=== PATIENT | male | born 1975 | race Caucasian/White ===

== ENCOUNTER 2016-11-13 04:33 | Emergency (ER) | payer BC ==
[~2016-11-13] VITALS: Ht 182.9 cm; Wt 111.1 kg
[~2016-11-13 04:33] MED LIST: NOVOLOG FLEX100 U/ML SC
[2016-11-13] MEDS ORDERED: AVPAK AZITHROM250 MG PO (04:48)
[2016-11-13] MEDS ORDERED: METFORMIN500 MG PO (04:49)
--- OUTSIDE RECORDS SUMMARY | 2016-11-13 04:52 | External Medical Summary Rpt ---
Author Author , Organization [employer] Address Unknown Phone Unavailable Care Team Providers Care Cash Applications Clerk Name Role Phone LOUANN JACQUES, LOUANN JACQUES Unavailable Unavailable [facility], Unavailable Unavailable [facility] Purpose Continuity of Care Document - 12-26-2015 through 2016 Problems Code Diagnosis DOS Provider Status [id number] PHOTOKERATI 12-26-2015 [facility] BILATERAL H5713 OCULAR PAIN 12-26-2015 [facility] Z880 ALLERGY 12-26-2015 [facility] STATUS TO HOSPITAL PENICILLIN Encounters Encounter Start End Date Code [facility] [address] [facility]PATIEN T EMERGENCY [address] [facility] LOUANN JACQUES [address] [place] [address] EMERGENCY T VISIT PHYS MODERATE SEVERITY
--- OUTSIDE RECORDS SUMMARY | 2016-11-13 04:52 | External Medical Summary Rpt ---
Demographics Preferred Language Yakut Marital Status Unknown Hinduism Affiliation Unknown Race Unknown Ethnic Group Unknown Author Author , Organization [employer] Address Unknown Phone Unavailable Purpose Continuity of Care Document - through 2016 Immunization No patient found.
--- OUTSIDE RECORDS SUMMARY | 2016-11-13 04:52 | External Medical Summary Rpt ---
Author Author CRISTA Barrios, C[employer]STA [employer] Organization [employer] Address Unknown Phone Unavailable
--- OUTSIDE RECORDS SUMMARY | 2016-11-13 04:52 | External Medical Summary Rpt ---
Demographics Preferred Language Greenlandic Marital Status Unknown Spiritism Affiliation Unknown Race Unknown Ethnic Group Unknown Author Author , Organization [employer] Address Unknown Phone Unavailable Purpose Continuity of Care Document - through 2016 Immunization No patient found.
--- OUTSIDE RECORDS SUMMARY | 2016-11-13 04:52 | External Medical Summary Rpt ---
Author Author , Organization [employer] Address Unknown Phone Unavailable Care Team Providers Care Netsuite Consultant Name Role Phone [facility], Unavailable Unavailable [facility] Purpose Continuity of Care Document - 12-26-2015 through 2016 Problems Code Diagnosis DOS Provider Status [id number] PHOTOKERATI 12-26-2015 [facility] BILATERAL H5713 OCULAR PAIN 12-26-2015 [facility] N [facility]YS Z880 ALLERGY 12-26-2015 [facility] STATUS TO HOSPITAL PENICILLIN Encounters Encounter Start End Date Code Location Performer Type Date EMERGENCY [address] DEPARTMEN T VISIT [facility] SEVERITY [facility] [address] OUTPATIEN T
--- OUTSIDE RECORDS SUMMARY | 2016-11-13 04:52 | External Medical Summary Rpt ---
Author Author , Organization [employer] Address Unknown Phone Unavailable Care Team Providers Care Instructor Of Sociology Name Role Phone LOUANN JACQUES, LOUANN JACQUES Unavailable Unavailable [facility], Unavailable Unavailable [facility] Purpose Continuity of Care Document - 12-26-2015 through 2016 Problems Code Diagnosis DOS Provider Status [id number] PHOTOKERATI 12-26-2015 [facility] BILATERAL H5713 OCULAR PAIN 12-26-2015 [facility] Z880 ALLERGY 12-26-2015 [facility] STATUS TO HOSPITAL PENICILLIN Encounters Encounter Start End Date Code Location Performer Type Date [facility] [address] OUTPATIEN T EMERGENCY [address] [facility] LOUANN JACQUES [address] [place] [address] EMERGENCY T VISIT PHYS MODERATE SEVERITY
--- OUTSIDE RECORDS SUMMARY | 2016-11-13 04:52 | External Medical Summary Rpt ---
Author Author , Organization [employer] Address Unknown Phone Unavailable Care Team Providers Care Sql Analyst Name Role Phone [facility], Unavailable Unavailable [facility] Purpose Continuity of Care Document - 12-26-2015 through 2016 Problems Code Diagnosis DOS Provider Status [id number] PHOTOKERATI 12-26-2015 [facility] BILATERAL H5713 OCULAR PAIN 12-26-2015 [facility] N [facility]Y PHYS Z880 ALLERGY 12-26-2015 [facility] STATUS TO HOSPITAL PENICILLIN Encounters Encounter Start End Date Code Location Performer Type Date EMERGENCY [address] DEPARTMEN T VISIT MODERATE SEVERITY HOSPITAL [address] OUTPATIEN T
--- NOTE | 2016-11-13 04:56 | Emergency Room Report ---
History of Present Illness Time Seen by [id number] Presenting Problem in Triage Pt arrived:Walked Presenting Problem:c/o hives and itching along with head, face and neck pain.Was seen in [facility] on 11/11/16 and Dx: with right otitis and blocked parotid gland. Taking zithromax. Head, face and neck pain started 4-5 days ago Onset of symptoms date/time:/ or onset unknown for:MEDICAL HX UNKNOWN Treatment Prior to Arrival: seen in [facility] and prescribed zithromax and received steroid injection on 11/11/16 RESIDENTIAL SOLAR CONSULTANT Provided by:NURSE Sepsis Risk Assessment: Temp: 98.4 B/P: 116/91 MAP: 99 Pulse: 91 Resp: 189 Recent fever? N Clinical Suspician of Infection? Y Mental Status: 1 - Regular (Normal Baseline) Sepsis Risk:Severe Sepsis Risk Have you (or family members/close friends) recently traveled outside the [place]? N If Yes, where/when: Have you had exposure to infectious disease within the past month? N TB? Other? Specify: Source patient, RN notes reviewed, old records Exam Limitations no limitations Comment pt with hives with itching and has hx of being treated for ear infection over the last few days Cardiac Chest Pain Chest pain indicative of cardiac No Timing/Duration this evening Severity moderate ALLERGIES Coded Allergies: Penicillins (unknown 11/13/16) Home Medications Reported Medications Azithromycin (Avpak Azithromycin) 250 MG PO DAILY #6 Metformin HCL (Metformin) 500 MG PO BID History Medical History General CAD? No Angina: No AR: No Hypertension? No Hyperlipidemia? No CHF? No DVT? No PE? No COPD? No Asthma? No Anemia? No GERD? No Gastric ulcers? No GI Bleed? No Hernia? No Thyroid Problems? No Hypothyroidism? No CVA? No Seizures? No Diabetes? Yes Insulin Dependent: No Insulin Pump: No Home FSBS? Yes Renal Insuffiency? No End Stage Renal Disease? No UTI? No Stones? No BPH? No GB Disease: No Nephritic Syndrome? No Asplenia? No Hepatitis? No Sickle Cell Disease? No Arthritis? No Migraines? No Cataracts? No Glaucoma? No MRSA? No HIV? No TB? No Anxiety? No Depression? No Cancer? No More? Yes Additional hx: BELLS PALSY Immunization Hx DT/Tetanus 5-10 YRS Flu Refused Pneumonia Never Had Surgical Hx Previous Surgery?N Family History Family Hx Diabetes Yes CAD Yes Hypertension Yes Hyperlipidemia Yes Cancer Yes TB No Social History Smoking Hx Smoker: Current Every Day Smoker Tobacco: Yes Type Cigarettes Alcohol Alcohol: Yes Drugs none Review of Systems All Other Systems Reviewed and Negative Constitutional denies fever Eyes denies drainage ENT denies: ear pain, epistaxis, throat pain. Respiratory denies cough, denies shortness of breath, denies wheezing Cardiovascular denies chest pain Gastrointestinal denies abdominal pain, denies vomiting Genitourinary denies: dysuria, frequency, hesitancy, hematuria. Musculoskeletal denies back pain, denies joint pain, denies joint swelling, denies neck pain Skin see HPI, rash Psychiatric/Neurological denies headache, denies seizure Physical Exam Vital Signs Vital Signs Date Time Temp Pulse Resp B/P Pulse O2 O2 Flow FiO2 Ox Delivery Rate 11/13 0440 98.4 91 189 116/91 98 - WBC >12,000 or <4,000 or 10% bands? 2 or more SIRS Criteria Met? B/P:116/91 MAP:99 Creatinine >2.0? UA output<0.5ml/kg/hr for 2 hrs? Platelet count >100,000? Lactate >2.0mmol/1? INR >1.2 or PTT > than 60 sec? Evidence of Organ Dysfunction? Provider documented clinical suspician of infection? Y Sepsis Criteria Count: 2 Sepsis Risk: Severe Sepsis Risk General Appearance no apparent distress Eye Exam - bilateral eye PERRL, bilateral eye EOMI Ear, Nose, Throat rt ear clear with no swollen rt parotid gland and throat clear Neck supple Respiratory Status No: respiratory distress. Cardiovascular regular rate/rhythm Peripheral Pulses Pulses normal Yes Extremities normal inspection Strength 4 Upper Ext (L), 4 Upper Ext (R), 4 Lower Ext (L), 4 Lower Ext (R) Neurologic alert, business functional analyst II-XII nml as tested, no motor/sensory deficits Reflexes Reflexes normal No Mental status normal mood/affect Skin no rash cons.w/shingles Lymphatic no adenopathy Medical Decision Making LABS/Meds/Orders Pt receiving controlled substance in ED? No Departure Departure Time of Disposition 9172 Disposition DC Home or Self Care(routine) Clinical Impression Primary Impression: Urticaria Condition STABLE Patient Instructions DI for Hives Additional Instructions stop z janeth and use meds as directed and see pcp for follow up this week Discharge Counseling Counseled pt/family regarding diagnosis, test results, medications/RX, follow up needs Prescriptions Current Visit Scripts Prednisone (Prednisone 10MG) 10 MG PO BID #10 TAB CEPHALEXIN (Keflex 500MG Capsule) 500 MG PO Q8H #21 CAP ED Critical Care Critical Care No at 0502
--- NOTE | 2016-11-13 04:56 | Emergency Room Report ---
History of Present Illness Time Seen by [id number] Presenting Problem in Triage Pt arrived:Walked Presenting Problem:c/o hives and itching along with head, face and neck pain.Was seen in [facility] on 11/11/16 and Dx: with right otitis and blocked parotid gland. Taking zithromax. Head, face and neck pain started 4-5 days ago Onset of symptoms date/time:/ or onset unknown for:MEDICAL HX UNKNOWN Treatment Prior to Arrival: seen in 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 N Clinical Suspician of Infection? Y Mental Status: 1 - Regular (Normal Baseline) Sepsis Risk:Severe Sepsis Risk Have you (or family members/close friends) recently traveled outside the [place]? N If Yes, where/when: Have you had exposure to infectious disease within the past month? N TB? Other? Specify: Source patient, RN notes reviewed, old records Exam Limitations no limitations Comment pt with hives with itching and has hx of being treated for ear infection over the last few days Cardiac Chest Pain Chest pain indicative of cardiac No Timing/Duration this evening Severity moderate ALLERGIES Coded Allergies: Penicillins (unknown 11/13/16) Home Medications Reported Medications Azithromycin (Avpak Azithromycin) 250 MG PO DAILY #6 Metformin HCL (Metformin) 500 MG PO BID History Medical History General CAD? No Angina: No CA: No Hypertension? No Hyperlipidemia? No CHF? No DVT? No PE? No COPD? No Asthma? No Anemia? No GERD? No Gastric ulcers? No GI Bleed? No Hernia? No Thyroid Problems? No Hypothyroidism? No CVA? No Seizures? No Diabetes? Yes Insulin Dependent: No Insulin Pump: No Home FSBS? Yes Renal Insuffiency? No End Stage Renal Disease? No UTI? No Stones? No BPH? No GB Disease: No Nephritic Syndrome? No Asplenia? No Hepatitis? No Sickle Cell Disease? No Arthritis? No Migraines? No Cataracts? No Glaucoma? No MRSA? No HIV? No TB? No Anxiety? No Depression? No Cancer? No More? Yes Additional hx: BELLS PALSY Immunization Hx DT/Tetanus 5-10 YRS Flu Refused Pneumonia Never Had Surgical Hx Previous Surgery?N Family History Family Hx Diabetes Yes CAD Yes Hypertension Yes Hyperlipidemia Yes Cancer Yes TB No Social History Smoking Hx Smoker: Current Every Day Smoker Tobacco: Yes Type Cigarettes Alcohol Alcohol: Yes Drugs none Review of Systems All Other Systems Reviewed and Negative Constitutional denies fever Eyes denies drainage ENT denies: ear pain, epistaxis, throat pain. Respiratory denies cough, denies shortness of breath, denies wheezing Cardiovascular denies chest pain Gastrointestinal denies abdominal pain, denies vomiting Genitourinary denies: dysuria, frequency, hesitancy, hematuria. Musculoskeletal denies back pain, denies joint pain, denies joint swelling, denies neck pain Skin see HPI, rash Psychiatric/Neurological denies headache, denies seizure Physical Exam Vital Signs Vital Signs Date Time Temp Pulse Resp B/P Pulse O2 O2 Flow FiO2 Ox Delivery Rate 11/13 0440 98.4 91 189 116/91 98 - WBC >12,000 or <4,000 or 10% bands? 2 or more SIRS Criteria Met? B/P:116/91 MAP:99 Creatinine >2.0? UA output<0.5ml/kg/hr for 2 hrs? Platelet count >100,000? Lactate >2.0mmol/1? INR >1.2 or PTT > than 60 sec? Evidence of Organ Dysfunction? Provider documented clinical suspician of infection? Y Sepsis Criteria Count: 2 Sepsis Risk: Severe Sepsis Risk General Appearance no apparent distress Eye Exam - bilateral eye PERRL, bilateral eye EOMI Ear, Nose, Throat rt ear clear with no swollen rt parotid gland and throat clear Neck supple Respiratory Status No: respiratory distress. Cardiovascular regular rate/rhythm Peripheral Pulses Pulses normal Yes Extremities normal inspection Strength 4 Upper Ext (L), 4 Upper Ext (R), 4 Lower Ext (L), 4 Lower Ext (R) Neurologic alert, certified legal secretary specialist II-XII nml as tested, no motor/sensory deficits Reflexes Reflexes normal No Mental status normal mood/affect Skin no rash cons.w/shingles Lymphatic no adenopathy Medical Decision Making LABS/Meds/Orders Pt receiving controlled substance in ED? No Departure Departure Time of Disposition 2963 Disposition DC Home or Self Care(routine) Clinical Impression Primary Impression: Urticaria Condition STABLE Patient Instructions DI for Hives Additional Instructions stop z janeth and use meds as directed and see pcp for follow up this week Discharge Counseling Counseled pt/family regarding diagnosis, test results, medications/RX, follow up needs Prescriptions Current Visit Scripts Prednisone (Prednisone 10MG) 10 MG PO BID #10 TAB CEPHALEXIN (Keflex 500MG Capsule) 500 MG PO Q8H #21 CAP ED Critical Care Critical Care No at 0502
[2016-11-13] MEDS ORDERED: KEFLEX 500MG.500 MG PO (05:02)
[2016-11-13] MEDS ORDERED: PREDNISONE 10MG10 MG PO (05:02)
[2016-11-13 05:15] VITALS: BP 116/91
== END 2016-11-13 05:16 | disposition home or self-care (01) ==
LOC: ER 04:33
DX: L50.0 Allergic urticaria (principal); Z72.0 Tobacco use; E11.9 Type 2 diabetes mellitus without complications

== ENCOUNTER 2016-12-25 13:45 | Emergency (ER) | payer BC ==
[~2016-12-25] VITALS: Ht 182.9 cm; Wt 99.8 kg
[~2016-12-25 13:45] MED LIST changes: +AVPAK AZITHROM250 MG PO; +KEFLEX 500MG.500 MG PO; +METFORMIN500 MG PO; +PREDNISONE 10MG10 MG PO
--- OUTSIDE RECORDS SUMMARY | 2016-12-25 13:59 | External Medical Summary Rpt ---
Demographics Preferred Language Occitan Marital Status Unknown Christian Affiliation Unknown Race Unknown Ethnic Group Unknown Author Author SELENE Address Unknown Phone Immunization No patient found.
--- OUTSIDE RECORDS SUMMARY | 2016-12-25 13:59 | External Medical Summary Rpt ---
Author Author , CRISTA TOBIN Address Unknown Phone [email or web address] Care Team Providers Care Sql Tech Name Role Phone LOUANN JACQUES, LOUANN JACQUES Unavailable Unavailable ARIN HINKLE Unavailable Unavailable [facility] Unavailable Unavailable [facility] Unavailable Un[facility], [facility], Unavailable Unavailable [facility], Unavailable Unavailable [facility], [facility], [facility] Unavailable Unavailable [facility], Unavailable Unavailable [facility] Purpose Continuity of Care Document - 12-26-2015 through 2016 Problems Code Diagnosis DOS Provider Status E119 TYPE 2 11-13-2016 [place] [facility] MELLITUS INC WITHOUT COMPLICATIO NS L500 ALLERGIC 11-13-2016 [facility] L509 URTICARIA 11-13-2016 [facility]PECIF[facility], [facility] Z720 TOBACCO USE 11-13-2016 [facility] H6690 OTITIS 11-11-2016 [facility] PHYSICIAN UNSPECIFIED GROUP UNSPECIFIED EAR [id number] PHOTOKERATI 12-26-2015 [facility] BILATERAL H5713 OCULAR PAIN 12-26-2015 [facility] N EMERG[facility]Y PHYS Z880 ALLERGY 12-26-2015 [facility] STATUS TO HOSPITAL PENICILLIN Medications Na ND Rx Da Fi Fi Am Da Di Ph RX Ph St me C No te ll ll ou ys ag ar # ys at rm s nt no ma ic us Or Da si cy ia de te s n re d CE 68 07 08 21 7 00 ME Ac PH 18 -0 -0 .0 00 L- ti AL 00 4- 4- 00 07 MA ve EX 12 20 20 49 RT IN 20 17 17 70 2 12 PH 50 AR 0 MA MG CY CA #5 PS 91 UL E DC 59 07 08 10 5 00 ME Ac ED 74 -0 -0 .0 00 L- ti NI 60 4- 4- 00 07 MA ve SO 17 20 20 49 RT NE 30 17 17 70 6 13 PH 10 AR MA MG CY TA #5 BL 91 ET AZ 59 07 07 6. 5 00 ME Ac IT 76 -0 -2 00 00 L- ti HR 23 2- 8- 0 07 MA ve OM 06 20 20 49 RT YC 00 17 17 67 IN 1 45 PH AR 25 MA 0 CY MG #5 TA 91 BL ET Procedures Procedure DOS Code Location Performer Comment THERAPEUT 57846 [facility] ARIN IC 7 PHYSICIAN PROPHYLAC GROUP TIC/DX INJECTION SUBQ/IM INJECTION J1100 [facility] ARIN 7 PHYSICIAN DEXAMETHO GROUP SONE SODIUM PHOSPHATE 1 MG Encounters Encounter Start End Date Code Location Performer Type Date EMERGENCY [address]126 [facility] 7 7 [facility] T VISIT LOW/MODER SEVERITY HOSPITAL [facility] Parnell 7 7 [facility] OUTPATIEN [facility] T EMERGENCY 84027 [facility] 7 7 [facility]PART[facility] T VISIT MODERATE SEVERITY OFFICE 93548 [facility] T [facility]ISIT GROUP 10 [facility]UTES [facility] [place] [address] 6 [facility] OUTPATIEN T EMERGENCY [address] [facility] 6 6 [facility] EMERGENCY T VISIT PHYS MODERATE SEVERITY
--- OUTSIDE RECORDS SUMMARY | 2016-12-25 13:59 | External Medical Summary Rpt ---
Author Author , CRISTA TOBIN Address Unknown Phone [email or web address] Care Team Providers Care Hazardous Materials Tanker Driver Name Role Phone ARIN KEVINSHAYY Unavailable Unavailable [facility] Unavailable Unavailable [facility] Unavailable Unavailable INC, [facility], Unavailable Unavailable [facility], Unavailable Unavailable [facility], [facility], [facility] Unavailable Unavailable EMERGENCY PHYS, [facility] EMERGENCY PHYS [facility], Unavailable Unavailable [facility] Purpose Continuity of Care Document - 12-26-2015 through 2016 Problems Code Diagnosis DOS Provider Status E119 TYPE 2 11-13-2016 [facility] ME[facility] WITHOUT COMPLICATIO NS L500 ALLERGIC 11-13-2016 [facility] L509 URTICARIA 11-13-2016 [facility]NSPECIFIED PH[facility]ICIANS, [facility] Z720 TOBACCO USE 11-13-2016 [facility] H6690 OTITIS 11-11-2016 [facility] MEDIA PHYSICIAN UNSPECIFIED GROUP UNSPECIFIED EAR [id number] PHOTOKERATI 12-26-2015 [facility] BILATERAL H5713 OCULAR PAIN 12-26-2015 [facility] B[facility]AL N EMERGENCY PHYS Z880 ALLERGY 12-26-2015 [facility] STATUS TO HOSPITAL PENICILLIN K42.9 UMBILICAL HERNIA WITHOUT OBSTRUCTION OR GANGRENE L50.9 URTICARIA, UNSPECIFIED Allergies, Adverse Reactions, Alerts Clinical Alert Notifications Alert Diabetes: no A1C in the last 6 months Diabetes: no eye exam in the last 365 days Diabetes: no influenza vaccine in the last 365 days Diabetes: no lipid panel in the last 365 days Diabetes: no urine protein screening in the last 365 days Medications Na ND Rx Da Fi Fi Am Da Di Ph RX Ph St me C No te ll ll ou ys ag ar # ys at rm s nt no ma ic us Or Da si cy ia de te s n re d CE 68 07 08 21 7 00 WA Ac PH 18 -0 -0 .0 00 L- ti AL 00 4- 4- 00 07 MA ve EX 12 20 20 49 RT IN 20 17 17 70 2 12 PH 50 AR 0 MA MG CY CA #5 PS 91 UL E FL 59 07 08 10 5 00 WA Ac ED 74 -0 -0 .0 00 L- ti NI 60 4- 4- 00 07 MA ve SO 17 20 20 49 RT NE 30 17 17 70 6 13 PH 10 AR MA MG CY TA #5 BL 91 ET AZ 59 07 07 6. 5 00 WA Ac IT 76 -0 -2 00 00 L- ti HR 23 2- 8- 0 07 MA ve OM 06 20 20 49 RT YC 00 17 17 67 IN 1 45 PH AR 25 MA 0 CY MG #5 TA 91 BL ET Procedures Procedure DOS Code Location Performer Comment THERAPEUT 77810 [facility] ARIN IC 7 PHYSICIAN PROPHYLAC GROUP TIC/DX INJECTION SUBQ/IM INJECTION J1100 [facility] YMSHAYY 7 PHYSICIAN DEXAMETHO GROUP SONE SODIUM PHOSPHATE 1 MG Encounters Encounter Start End Date Code Location Performer Type Date EMERGENCY 20814 [facility] 7 7 [facility] T VISIT MODERATE SEVERITY EMERGENCY 34485 [facility] 7 7 [facility] T VISIT LOW/MODER SEVERITY HOSPITAL [facility] - 7 7 [facility] OUTPATIEN INC T OFFICE 67498 [facility] ARIN OUTPATIEN 7 7 PHYSICIAN T VISIT GROUP 10 [address] [address] [facility] [address] DEPARTMEN T VISIT MODERATE SEVERITY
--- OUTSIDE RECORDS SUMMARY | 2016-12-25 13:59 | External Medical Summary Rpt ---
Demographics Preferred Language Sami Marital Status Unknown Church Affiliation Unknown Race Unknown Ethnic Group Unknown Author Author SELENE Address Unknown Phone Immunization No patient found.
--- OUTSIDE RECORDS SUMMARY | 2016-12-25 13:59 | External Medical Summary Rpt ---
Author Author , CRISTA TOBIN Address Unknown Phone Care Team Providers Care Cumulative Effects Analyst Name Role Phone LOUANN JACQUES, LOUANN JACQUES Unavailable Unavailable ARIN HINKLE Unavailable Unavailable [facility] Unavailable Unavailable [facility] Unavailable Unavailable INC, [facility], Unavailable Unavailable [facility], Unavailable Unavailable [facility], [facility], [facility] Unavailable Unavailable EMERGENCY PHYS, [facility], Unavailable Unavailable [facility] Purpose Continuity of Care Document - 12-26-2015 through 2016 Problems Code Diagnosis DOS Provider Status E119 TYPE 2 11-13-[address] [place] [address] [facility] WITHOUT COMPLICATIO NS L500 ALLERGIC 11-13-2016 [facility] L509 URTICARIA 11-13-2016 [facility], [facility] Z720 TOBACCO USE 11-13-2016 [facility] H6690 OTITIS 11-11-2016 [facility] UNSPECIFIED GROUP UNSPECIFIED EAR [id number] PHOTOKERATI 12-26-2015 [facility] BILATERAL H5713 OCULAR PAIN 12-26-2015 [facility] Z880 ALLERGY 12-26-2015 [facility] STATUS TO HOSPITAL PENICILLIN Medications Na ND Rx Da Fi Fi Am Da Di Ph RX Ph St me C No te ll ll ou ys ag ar # ys at rm s nt no ma ic us Or Da si cy ia de te s n re d CE 68 07 08 21 7 00 DE Ac PH 18 -0 -0 .0 00 L- ti AL 00 4- 4- 00 07 MA ve EX 12 20 20 49 RT IN 20 17 17 70 2 12 PH 50 AR 0 MA MG CY CA #5 PS 91 UL E TX 59 07 08 10 5 00 DE Ac ED 74 -0 -0 .0 00 L- ti NI 60 4- 4- 00 07 MA ve SO 17 20 20 49 RT NE 30 17 17 70 6 13 PH 10 AR MA MG CY TA #5 BL 91 ET AZ 59 07 07 6. 5 00 DE Ac IT 76 -0 -2 00 00 L- ti HR 23 2- 8- 0 07 MA ve OM 06 20 20 49 RT YC 00 17 17 67 IN 1 45 PH AR 25 MA 0 CY MG #5 TA 91 BL ET Procedures Procedure DOS Code Location Performer Comment THERAPEUT [address] [facility] IC 7 PHYSICIAN PROPHYLAC GROUP TIC/DX INJECTION SUBQ/IM INJECTION J1100 [facility] 7 PHYSICIAN DEXAMETHO GROUP SONE SODIUM PHOSPHATE 1 MG Encounters Encounter Start End Date Code Location Performer Type Date EMERGENCY [address] [facility] [address] [facility] T VISIT LOW/MODER SEVERITY HOSPITAL [facility] [address] [facility] OUTPATIEN [facility] T EMERGENCY [address] [facility] 7 7 [facility] T VISIT MODERATE SEVERITY OFFICE [address] [facility] T VISIT GROUP 10 MINUTES HOSPITAL [place] [address] 6 [facility] OUTPATIEN T EMERGENCY [address] [facility] 6 6 [facility] EMERGENCY T VISIT PHYS MODERATE SEVERITY
--- OUTSIDE RECORDS SUMMARY | 2016-12-25 13:59 | External Medical Summary Rpt ---
Author Author , CRISTA TOBIN Address Unknown Phone [email or web address] Care Team Providers Care Strap Machine Operator Automatic Name Role Phone ARIN KEVINSHAYY Unavailable Unavailable [facility] Unavailable Unavailable [facility] Unavailable Unavailable INC, [facility], Unavailable Unavailable [facility], Unavailable Unavailable [facility], [facility], [facility] Unavailable Unavailable EMERGENCY PHYS, [facility] EMERGENCY PHYS [facility], Unavailable Unavailable [facility] Purpose Continuity of Care Document - 12-26-2015 through 2016 Problems Code Diagnosis DOS Provider Status E119 TYPE 2 11-13-2016 [facility] WITHOUT COMPLICATIO NS L500 ALLERGIC 11-13-2016 [facility] L509 URTICARIA 11-13-2016 [facility], [facility] Z720 TOBACCO USE 11-13-2016 [facility] H6690 OTITIS 11-11-2016 [facility] UNSPECIFIED GROUP UNSPECIFIED EAR [id number] PHOTOKERATI 12-26-2015 [facility] BILATERAL H5713 OCULAR PAIN 12-26-2015 [facility] Z880 ALLERGY 12-26-2015 [facility] STATUS TO HOSPITAL PENICILLIN K42.9 UMBILICAL [...] CY CA #5 PS 91 UL E AL 59 07 08 10 5 00 WA [...] Procedure DOS Code Location Performer Comment THERAPEUT [address]10 [facility] IC 7 PHYSICIAN PROPHYLAC GROUP TIC/DX INJECTION SUBQ/IM INJECTION J1100 [facility] YMSHAYY 7 PHYSICIAN DEXAMETHO GROUP SONE SODIUM PHOSPHATE 1 MG Encounters Encounter Start End Date Code Location Performer Type Date EMERGENCY 37673 [facility] 7 7 [facility] T VISIT MODERATE SEVERITY EMERGENCY 72518 [facility] 7 7 [facility] T VISIT LOW/MODER SEVERITY HOSPITAL [facility] - [address] [facility] OUTPATIEN INC T OFFICE [address] [facility] ARIN OUTPATIEN 7 7 PHYSICIAN T VISIT GROUP 10 [address] [facility] [address] DEPARTMEN T VISIT MODERATE SEVERITY
--- NOTE | 2016-12-25 14:01 | Urgent Treatment Center Report ---
History of Present Issue Date/Time Seen by Provider 12/25/16 1401 Visit Reason Pt arrived:Walked Presenting Problem:PT ADVISES HIS SUGAR HAS BEEN HIGH AND THAT HE IS OUT OF HIS METFORMIN HE IS SCHEDULED TO SEE ON SATURDAY A NEW PATEINT. PT HERE FOR MED REFILL Location if Accident: Onset of symptoms date/time:/ or onset unknown for:MEDICAL HX UNKNOWN Have you (or family members/close friends) recently traveled outside the [place]? If Yes, where/when: Have you had exposure to infectious disease within the past month? TB? Other? Specify: Patient states that he has been out of his medication for several days States that he knew his "sugar" was getting elevated when he began to feel bad which he usually does when he is out of his medication State that he took a couple of his sisters metformin but she is out now also States that he came in today to get his medication refilled before his blood sugar gets out of control ALLERGIES Coded Allergies: Penicillins (unknown 11/13/16) Home Medications Reported Medications Metformin HCL (Metformin) 500 MG PO BID History Medical History General CAD? No Angina: No [place]: No Hypertension? No Hyperlipidemia? No CHF? No DVT? No PE? No COPD? No Asthma? No Anemia? No GERD? No Gastric ulcers? No GI Bleed? No Hernia? No Thyroid Problems? No Hypothyroidism? No CVA? No Seizures? No Diabetes? Yes Insulin Dependent: No Insulin Pump: No Home FSBS? Yes Renal Insuffiency? No UTI? No Stones? No BPH? No GB Disease: No Nephritic Syndrome? No Asplenia? No Hepatitis? No Sickle Cell Disease? No Arthritis? No Migraines? No Cataracts? No Glaucoma? No MRSA? No HIV? No TB? No Anxiety? No Depression? No Cancer? No More? Yes Additional hx: BELLS PALSY Immunization HX DT/Tetanus 5-10 YRS Flu Refused Pneumonia Never Had Surgical Hx Previous Surgery?Y HERNIA REPAIR Family History Family HX Diabetes Yes CAD Yes Hypertension Yes Hyperlipidemia Yes Cancer Yes TB No Social History Smoking Hx Packs/day < 1 Pack Alcohol Alcohol: Yes Review of Systems All Other Systems Reviewed and Negative Comment Patient wants to get Metformin refilled states that he knew his blood sugar was going to get to high because he had been out of his medication for several days Physical Exam Vital Signs Vital Signs Date Time Temp Pulse Resp B/P Pulse O2 O2 Flow FiO2 Ox Delivery Rate 12/25 1401 98.2 84 16 154/94 98 12/25 1347 98.2 84 16 154/94 98 General Appearance normal appearance, WD/WN, no apparent distress Respiratory Status Yes: trachea midline, chest symmetrical, non tender chest. No: respiratory distress. 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 Patient been out of his Metformin for several days states that he has appointment on with Dr Dee but couldn't wait that long without his medication Medical Decision Making LABS/Meds/Orders Pt receiving controlled substance in ED? No Results/Orders Laboratory Tests 12/25/16 1458: POC Glucose 387 *H 12/25/16 1351: POC Glucose 445 *H Current Medication Orders Sig/Armaan Start time Last Medication Dose Route Stop Time Status Admin Metformin HCl 500 MG ONCE ONE 12/25 1515 DC 12/25 PO 12/25 1516 1513 Insulin Human Regular 10 UNITS ONCE ONE 12/25 1415 DC 12/25 SC 12/25 1416 1415 Insulin Human Regular 0 .STK-MED ONE 12/25 1411 DC .ROUTE Orders Procedure Date/time Status FINGERSTICK BLOOD SUGAR 12/25 1458 Complete FINGERSTICK BLOOD SUGAR 12/25 1351 Complete Progress [facility] Progress Notes 1 Date 12/25/16 Time 1425 Comment Spoke with ER physician Dr Regan informed him of blood sugar reading of 445. Patient informed that he may need to be moved to the ER for further evaluation and treatment and paitent refused State that he wants to stay in [facility]. Dr Regan agreed with treatment of Regular insulin 10 units SQ then repeat fingerstick in 300 minutes [facility] Progress Notes 2 Date 12/25/16 Time 1507 Comment Patient state that he feels better 2nd finger stick blood sugar 387 dicussed patient with ER physician Dr Regan and agreed on treatment plan to start patient on previously prescribed metformin 500mg before leaving [facility] and advise patient to follow up with Dr Dee as previously planned and have patient recheck his FSBS in an hour to make sure that it is still continuing to lower Departure Departure Time of Disposition 1513 Disposition DC Home or Self Care(routine) Clinical Impression Primary Impression: Medication refill Secondary Impressions: Elevated blood sugar Condition STABLE Referrals Kailash Dee MD (Family): 2 Days-Call Office Patient Instructions Blood Glucose, DI for Hyperglycemia -- Adult, Glyburide and Metformin, Metformin Additional Instructions Take medication as prescribed Watch your diet and avoid sugary foods to help keep your blood sugar from being elevated Follow up with Dr Dee on for further evaluation or testing Watch blood sugar and if it gets too high or too low go straight to the emergency room Return if need Discharge Counseling Counseled pt/family regarding diagnosis, test results, medications/RX, home care, follow up needs Prescriptions Current Visit Scripts METFORMIN HCL (Metformin 500MG) 500 MG PO BID #60 TAB at 0009
--- NOTE | 2016-12-25 14:01 | Urgent Treatment Center Report ---
History of Present Issue Date/Time Seen by Provider 12/25/16 1401 Visit Reason Pt arrived:Walked Presenting Problem:PT ADVISES HIS SUGAR HAS BEEN HIGH AND THAT HE IS OUT OF HIS METFORMIN HE IS SCHEDULED TO SEE ON SATURDAY A NEW PATEINT. PT HERE FOR MED REFILL Location if Accident: Onset of symptoms date/time:/ or onset unknown for:MEDICAL HX UNKNOWN Have you (or family members/close friends) recently traveled outside the [place]? If Yes, where/when: Have you had exposure to infectious disease within the past month? TB? Other? Specify: Patient states that he has been out of his medication for several days States that he knew his "sugar" was getting elevated when he began to feel bad which he usually does when he is out of his medication State that he took a couple of his sisters metformin but she is out now also States that he came in today to get his medication refilled before his blood sugar gets out of control ALLERGIES Coded Allergies: Penicillins (unknown 11/13/16) Home Medications Reported Medications Metformin HCL (Metformin) 500 MG PO BID History Medical History General CAD? No Angina: No [place]: No Hypertension? No Hyperlipidemia? No CHF? No DVT? No PE? No COPD? No Asthma? No Anemia? No GERD? No Gastric ulcers? No GI Bleed? No Hernia? No Thyroid Problems? No Hypothyroidism? No CVA? No Seizures? No Diabetes? Yes Insulin Dependent: No Insulin Pump: No Home FSBS? Yes Renal Insuffiency? No UTI? No Stones? No BPH? No GB Disease: No Nephritic Syndrome? No Asplenia? No Hepatitis? No Sickle Cell Disease? No Arthritis? No Migraines? No Cataracts? No Glaucoma? No MRSA? No HIV? No TB? No Anxiety? No Depression? No Cancer? No More? Yes Additional hx: BELLS PALSY Immunization HX DT/Tetanus 5-10 YRS Flu Refused Pneumonia Never Had Surgical Hx Previous Surgery?Y HERNIA REPAIR Family History Family HX Diabetes Yes CAD Yes Hypertension Yes Hyperlipidemia Yes Cancer Yes TB No Social History Smoking Hx Packs/day < 1 Pack Alcohol Alcohol: Yes Review of Systems All Other Systems Reviewed and Negative Comment Patient wants to get Metformin refilled states that he knew his blood sugar was going to get to high because he had been out of his medication for several days Physical Exam Vital Signs Vital Signs Date Time Temp Pulse Resp B/P Pulse O2 O2 Flow FiO2 Ox Delivery Rate 12/25 1401 98.2 84 16 154/94 98 12/25 1347 98.2 84 16 154/94 98 General Appearance normal appearance, WD/WN, no apparent distress Respiratory Status Yes: trachea midline, chest symmetrical, non tender chest. No: respiratory distress. 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 Patient been out of his Metformin for several days states that he has appointment on with Dr Dee but couldn't wait that long without his medication Medical Decision Making LABS/Meds/Orders Pt receiving controlled substance in ED? No Results/Orders Laboratory Tests 12/25/16 1458: POC Glucose 387 *H 12/25/16 1351: POC Glucose 445 *H Current Medication Orders Sig/Armaan Start time Last Medication Dose Route Stop Time Status Admin Metformin HCl 500 MG ONCE ONE 12/25 1515 DC 12/25 PO 12/25 1516 1513 Insulin Human Regular 10 UNITS ONCE ONE 12/25 1415 DC 12/25 SC 12/25 1416 1415 Insulin Human Regular 0 .STK-MED ONE 12/25 1411 DC .ROUTE Orders Procedure Date/time Status FINGERSTICK BLOOD SUGAR 12/25 1458 Complete FINGERSTICK BLOOD SUGAR 12/25 1351 Complete Progress [facility] Progress Notes 1 Date 12/25/16 Time 1425 Comment Spoke with ER physician Dr Regan informed him of blood sugar reading of 445. Patient informed that he may need to be moved to the ER for further evaluation and treatment and paitent refused State that he wants to stay in [facility]. Dr Regan agreed with treatment of Regular insulin 10 units SQ then repeat fingerstick in 300 minutes [facility] Progress Notes 2 Date 12/25/16 Time 1507 Comment Patient state that he feels better 2nd finger stick blood sugar 387 dicussed patient with ER physician Dr Regan and agreed on treatment plan to start patient on previously prescribed metformin 500mg before leaving [facility] and advise patient to follow up with Dr Dee as previously planned and have patient recheck his FSBS in an hour to make sure that it is still continuing to lower Departure Departure Time of Disposition 1513 Disposition DC Home or Self Care(routine) Clinical Impression Primary Impression: Medication refill Secondary Impressions: Elevated blood sugar Condition STABLE Referrals Kailash Dee MD (Family): 2 Days-Call Office Patient Instructions Blood Glucose, DI for Hyperglycemia -- Adult, Glyburide and Metformin, Metformin Additional Instructions Take medication as prescribed Watch your diet and avoid sugary foods to help keep your blood sugar from being elevated Follow up with Dr Dee on for further evaluation or testing Watch blood sugar and if it gets too high or too low go straight to the emergency room Return if need Discharge Counseling Counseled pt/family regarding diagnosis, test results, medications/RX, home care, follow up needs Prescriptions Current Visit Scripts METFORMIN HCL (Metformin 500MG) 500 MG PO BID #60 TAB at 0635
[2016-12-25] MEDS ORDERED: METFORMIN 500M500 MG PO (15:18)
[2016-12-25 15:21] VITALS: BP 154/94
== END 2016-12-25 15:22 | disposition home or self-care (01) ==
LOC: ER 13:45 → UTC 13:45
DX: E11.65 Type 2 diabetes mellitus with hyperglycemia (principal); Z79.84 Long term (current) use of oral hypoglycemic drugs; Z72.0 Tobacco use

== ENCOUNTER → 2017-02-12 | Outpatient (CLI) | payer BC ==
[~2017-02-12] MED LIST changes: +METFORMIN 500M500 MG PO
[2017-02-12 14:07] LABS: LYMPH # 1.4 K/mm3 (0.7-4.5); LYMPH % 25.5 % (10-50)
[2017-02-12 14:23] LABS: BUN 17 mg/dL (7-18)
[2017-02-12 14:24] LABS: GFR (ESTIMATED) 107 ML/MIN (>60)
[2017-02-13 10:37] LABS: Creatinine, Urine 144.1 mg/dL (Not Estab.); Microalbumin, Urine 33.4 ug/mL (Not Estab.)
== END ==
LOC: LAB 13:21
PROVIDERS: Emergency Medicine
DX: E11.9 Type 2 diabetes mellitus without complications (principal); Z79.4 Long term (current) use of insulin